=== PATIENT | female | born 1995 | race African-American/Black ===

== ENCOUNTER 2020-05-05 14:11 | Emergency (ER) | payer OTHER ==
[2020-05-05 14:42] VITALS: BP 106/58; PULSE 76; TEMP 99; BMI 27.1
== END 2020-05-05 16:17 | disposition home or self-care (01) ==
LOC: FER 14:11
DX: N91.2 Amenorrhea, unspecified (principal)
CPT/HCPCS: 36415; 81003; 84703; 87086; 99283-25

== ENCOUNTER 2022-01-13 20:58 | Emergency (ER) | payer OTHER ==
[2022-01-13] MEDS ORDERED: ONDANSETRON 4 MG/2 ML VIAL IVPB ONE (21:37)
[2022-01-13] MEDS ORDERED: SODIUM CHLORIDE 1,000 ML IV ONE (21:37)
[2022-01-13] MEDS ORDERED: KETOROLAC TROMETHAMINE 30 MG/1 ML VIAL IVPUSH ONE (21:37)
[2022-01-13] MEDS ORDERED: KETOROLAC TROMETHAMINE 30 MG/1 ML VIAL ONE (21:42)
[2022-01-13] MEDS ORDERED: ONDANSETRON 4 MG/2 ML VIAL ONE (21:42)
[2022-01-13 22:11] LABS: HEMATOCRIT 38.9 % (32.4-45.2); HEMOGLOBIN 12.7 G/dL (10.7-15.3); MCH 28.9 pg (25.7-33.7); MCHC 32.8 g/dl (32.0-36.0); MEAN CELL VOLUME 88.1 fl (80-96); MEAN PLT VOLUME 7.1 fl (7.5-11.1); PLATELET COUNT 275.8 10^3/uL (134-434); RBC 4.41 10^6/uL (3.60-5.2); RDW 14.4 % (11.6-15.6); WHITE BLOOD COUNT 10.1 10^3/uL (4.0-10.8)
[2022-01-13 22:12] VITALS: BP 109/62; PULSE 67; RESP 18; TEMP 98; BMI 29.6
[2022-01-13 22:23] LABS: ALBUMIN 3.8 g/dl (3.4-5.0); BILIRUBIN,TOTAL 0.3 mg/dl (0.2-1); CREATININE 0.6 mg/dl (0.55-1.3); TOT PROT 6.9 g/dl (6.4-8.2)
== END 2022-01-13 23:38 | disposition home or self-care (01) ==
LOC: FER 20:58
PROC: 3E0333Z Introduction of Anti-inflammatory into Peripheral Vein, Percutaneous Approach (ICD-10-PCS; principal; 2022-01-13)
PROC: 3E033GC Introduction of Other Therapeutic Substance into Peripheral Vein, Percutaneous Approach (ICD-10-PCS; 2022-01-13)
PROC: 3E0337Z Introduction of Electrolytic and Water Balance Substance into Peripheral Vein, Percutaneous Approach (ICD-10-PCS; 2022-01-13)
DX: R10.9 Unspecified abdominal pain (principal)
CPT/HCPCS: 36415; 74176-TC; 80053; 81003; 81015; 81025; 85027; 99284-25

== ENCOUNTER 2024-04-03 23:29 | Emergency (ER) | payer OTHER ==
[2024-04-03 23:41] VITALS: BP 110/72; PULSE 82; RESP 16; TEMP 98.2; BMI 28.3
[2024-04-03] MEDS ORDERED: DEXAMETHASONE SOD PHOSPHATE 10 MG/1 ML VIAL ONE (23:56)
[2024-04-04] MEDS: DEXAMETHASONE LIQUID 0.5 MG/5 ML PO ONE
[2024-04-04 01:35] LABS: HIV INTERPRETATION NEGATIVE (NEGATIVE)
== END 2024-04-04 00:44 | disposition home or self-care (01) ==
LOC: FER 23:29
DX: J40 Bronchitis, not specified as acute or chronic (principal); R05.2 Subacute cough; Z20.822 Contact with and (suspected) exposure to COVID-19
CPT/HCPCS: 0241U-QW; 36415; 71046-TC-FY; 81025; 86803; 87389; 99284-25